=== PATIENT | female | born 1965 | race Caucasian/White ===

== ENCOUNTER 2020-01-26 06:25 | Emergency (ER) | payer OTHER ==
[2020-01-26 06:44] VITALS: BP 129/77; PULSE 80
--- NOTE | 2020-01-26 07:49 | EDM.PDOC ---
ED HPI GENERAL MEDICAL PROBLEM - General Chief Complaint: Back Pain or Injury Stated Complaint: BACK PAIN Time Seen by Provider: 01/26/20 06:58 Source of Information: Reports: Patient, RN Notes Reviewed - History of Present Illness INITIAL COMMENTS - FREE TEXT/NARRATIVE: 54 yr old female comes in with low back pain that she has had for the last 2 to 3 days. Has been having some bladder sx off and on for several weeks. No known injury to her back. Pain is worse with motion. No chest or abd pain, fever, chills, nausea or vomiting. Middle Back Pain Score (Numeric/FACES): 8 - Related Data Allergies Allergy/AdvReac Type Severity Reaction Status Date / Time No Known Allergies Allergy Verified 01/26/20 06:44 Home Meds: Home Meds Aspirin [Phil Chewable] 81 mg PO DAILY 10/08/15 [History] Ethinyl Estradiol/Norgestrel [Cryselle 28-Day] 1 tab PO DAILY 10/08/15 [History] Multivitamin 1 tab PO DAILY 01/26/20 [History] Nitrofurantoin Monohyd/M-Cryst [Macrobid 100 mg Capsule] 100 mg PO BID #14 capsule 01/26/20 [Rx] Rosuvastatin Calcium 20 mg PO DAILY 01/26/20 [History] Ubidecarenone [Co Q-10] 1 cap PO DAILY 01/26/20 [History] Past Medical History HEENT History: Reports: None Cardiovascular History: Reports: High Cholesterol Respiratory History: Reports: None Gastrointestinal History: Reports: GERD Genitourinary History: Reports: UTI, Recurrent COP[employer]OR History: Reports: Oncologic (Cancer) History: Reports: None - Infectious Disease History Infectious Disease History: Reports: Chicken Pox - Past Surgical History HEENT Surgical History: Reports: Oral Surgery, Tonsillectomy Cardiovascular Surgical History: Reports: None Female Surgical History: Reports: Section Social & Family History - Family History Family Medical History: No Pertinent Family History - Tobacco Use Tobacco Use Status *Q: Never Tobacco User - Caffeine Use Caffeine Use: Reports: Coffee - Recreational Drug Use Recreational Drug Use: No ED ROS GENERAL - Review of Systems Review Of Systems: See Below Constitutional: Denies: Fever, Chills, Diaphoresis HEENT: Reports: No Symptoms Respiratory: Reports: No Symptoms Cardiovascular: Reports: No Symptoms GI/Abdominal: Denies: Abdominal Pain, Nausea, Vomiting Musculoskeletal: Reports: Back Pain. Denies: Leg Pain Skin: Reports: No Symptoms Neurological: Denies: Numbness, Tingling, Weakness ED EXAM, NEURO - Physical Exam Exam: See Below General Appearance: Alert, No Apparent Distress Respiratory/Chest: No Respiratory Distress Cardiovascular: Regular Rate, Rhythm GI/Abdominal: Soft, Non-Tender. No: Guarding Neurological: Alert, No Motor/Sensory Deficits Back Exam: No: CVA Tenderness (L), CVA Tenderness (R), Paraspinal Tenderness, Vertebral Tenderness Extremities: Normal Inspection. No: Pedal Edema, Leg Pain Skin Exam: Warm, Dry, Normal Color Course - Vital Signs Last Recorded V/S: Last Vital Signs Temp 98.7 F 01/26/20 06:37 Pulse 80 01/26/20 06:37 Resp 18 01/26/20 06:37 BP 129/77 01/26/20 06:37 Pulse Ox 96 01/26/20 06:37 - Orders/Labs/Meds Orders: Active Orders 24 hr Category Date Time Status CULTURE URINE [RM] Stat Lab 01/26/20 08:47 Ordered Labs: Laboratory Tests 01/26/20 Range/Units 07:18 Urine Color Yellow (Yellow) Urine Appearance Clear (Clear) Urine pH 7.0 (5.0-8.0) Ur Specific [place] 1.015 (1.005-1.030) Urine Protein Negative (Negative) Urine Glucose (UA) Negative (Negative) Urine Ketones Negative (Negative) Urine Occult Blood Negative (Negative) Urine Nitrite Negative (Negative) Urine Bilirubin Negative (Negative) Urine Urobilinogen 0.2 (0.2-1.0) Ur Leukocyte Esterase 1+ H (Negative) Urine RBC 0-5 (0-5) /hpf Urine WBC 0-5 (0-5) /hpf Ur Epithelial Cells 0-5 (0-5) /hpf Urine Bacteria Few (FEW) /hpf Urine Mucus Few (FEW) /hpf - Re-Assessments/Exams Free Text/Narrative Re-Assessment/Exam: 01/26/20 09:21 Ua is 1 + leukocyte pos. Have ordered urine culture. Her bladder scan did show about 300 ml retention. She has no fever, chills, nausea or vomiting. Will put her on macrobid bid, discharge instr. as documented. Departure - Departure Time of Disposition: 08:55 Disposition: Home, Self-Care 01 Condition: Fair Clinical Impression: Urinary retention with incomplete bladder emptying UTI (urinary tract infection) Qualifiers: Urinary tract infection type: site unspecified Hematuria presence: without hematuria Qualified Code(s): N39.0 - Urinary tract infection, site not specified Back pain Qualifiers: Back pain location: low back pain Chronicity: unspecified - Discharge Information Prescriptions: Nitrofurantoin Monohyd/M-Cryst [Macrobid 100 mg Capsule] 100 mg PO BID #14 caps ule Instructions: Urinary Tract Infection, Adult, [id number] Referrals: Estefania Palomo MD [Primary Care Provider] - Forms: ED Department Discharge Additional Instructions: Macrobid antibiotic 100 mg twice daily for 1 week. Prescription has been sent to [facility] [employer] [facility]. Drink plenty of water to maintain hydration. See Dr Stacia Angelo., call for appt. See one of the other providers if unable to get in to see Dr Palomo. Return to ED as needed if symptoms worsening ni any way. Sepsis Event Note (ED) - Evaluation Sepsis Screening Result: No Definite Risk - Focused Exam Vital Signs: Vital Signs Temp Pulse Resp BP Pulse Ox 01/26/20 06:37 98.7 F 80 18 129/77 96 - My Orders Last 24 Hours: My Active Orders 01/26/20 08:47 CULTURE URINE [RM] Stat - Assessment/Plan Last 24 Hours: My Active Orders 01/26/20 08:47 CULTURE URINE [RM] Stat
== END 2020-01-26 09:08 | disposition home or self-care (01) ==
LOC: JD.ED 06:25
DX: N39.0 Urinary tract infection, site not specified (principal); R33.9 Retention of urine, unspecified; E78.00 Pure hypercholesterolemia, unspecified; Z90.49 Acquired absence of other specified parts of digestive tract; Z79.82 Long term (current) use of aspirin; Z79.899 Other long term (current) drug therapy
CPT/HCPCS: 51798; 81001; 87086; 99282; 99283

== ENCOUNTER 2021-07-07 06:27 | Day surgery (SDC) | payer OTHER ==
[~2021-07-07 06:27] MED LIST: Lactated Ringers 1,000 ML IV SCH; Lidocaine 1%/Sod Bicarbonate in NS 8.4% 1 ML Syringe IDERM PRN; Sodium Chloride 0.9% 10 ML Syringe FLUSH PRN
[2021-07-07] MEDS ORDERED: Propofol 200 MG/20 ML SDV ONE ×2 (07:09→07:37)
[2021-07-07] MEDS ORDERED: Lidocaine 1% 4 ML ONE (07:09)
[2021-07-07 17:16] VITALS: BP 123/75; PULSE 74
== END 2021-07-07 08:32 | disposition home or self-care (01) ==
LOC: JD.SDS 06:27
PROVIDERS: ATTEND Surgery
DX: Z12.11 Encounter for screening for malignant neoplasm of colon (principal); D12.0 Benign neoplasm of cecum; E78.00 Pure hypercholesterolemia, unspecified; E78.2 Mixed hyperlipidemia; E55.9 Vitamin D deficiency, unspecified; Z90.49 Acquired absence of other specified parts of digestive tract; Z79.899 Other long term (current) drug therapy; K21.9 Gastro-esophageal reflux disease without esophagitis; Z80.0 Family history of malignant neoplasm of digestive organs
CPT/HCPCS: 45380; J2704; J7120; 00812